=== PATIENT | female | born 1960 | race Caucasian/White ===

== ENCOUNTER 2018-09-20 06:17 | Day surgery (SDC) | payer OTHER ==
[~2018-09-20] VITALS: Ht 134.6 cm; Wt 66.6 kg
[2018-09-20 07:31] VITALS: BP 133/73; PULSE 74; RESP 14
[2018-09-20 07:35] VITALS: Ht 134.6 cm; Wt 66.6 kg
[2018-09-20] MEDS ORDERED: FENTAnyl 50 MCG/ML VIAL ONE (08:14)
[2018-09-20] MEDS ORDERED: MIDAZOLAM 1 MG/ML 2 ML INJ ONE ×2 (08:15)
[2018-09-20 08:27] VITALS: BP 130/59; PULSE 66; RESP 14
== END 2018-09-21 08:28 | disposition home or self-care (01) ==
LOC: GIL 06:17
PROVIDERS: ATTEND Internal Medicine Gastroenterology
DX: Z12.11 Encounter for screening for malignant neoplasm of colon (principal); K64.1 Second degree hemorrhoids; E11.9 Type 2 diabetes mellitus without complications
CPT/HCPCS: 45378; J2250; J3010; Z7610